=== PATIENT | male | born 1990 | race Native Hawaiian/Other Pacific Islander ===

== ENCOUNTER 2021-01-22 13:09 | Outpatient (CLI) | payer BC, OTHER ==
[~2021-01-22] VITALS: Ht 190.5 cm; Wt 145.1 kg
== END 2021-01-22 19:08 | disposition home or self-care (01) ==
LOC: INF 13:09
PROVIDERS: ATTEND Family Medicine
DX: Z23 Encounter for immunization (principal); U07.1 COVID-19
CPT/HCPCS: 96365; M0244